=== PATIENT | female | born 1950 | race Caucasian/White ===

== ENCOUNTER → 2017-09-10 | Outpatient (CLI) | payer MEDICARE | LOC: M.RAD 09:50 | DX: J98.4 Other disorders of lung (principal); M19.012 Primary osteoarthritis, left shoulder; M19.011 Primary osteoarthritis, right shoulder; I10 Essential (primary) hypertension; E03.9 Hypothyroidism, unspecified; N95.1 Menopausal and female climacteric states ==

== ENCOUNTER → 2017-10-30 | Outpatient (CLI) | payer MEDICARE | LOC: M.RAD 10-22 09:00 | DX: E03.9 Hypothyroidism, unspecified (principal); I10 Essential (primary) hypertension; Z78.0 Asymptomatic menopausal state ==

== ENCOUNTER → 2017-12-31 | Outpatient (CLI) | payer MEDICARE | LOC: M.RAD 09:00 | DX: Z12.31 Encounter for screening mammogram for malignant neoplasm of breast (principal) ==

== ENCOUNTER → 2019-01-13 | Outpatient (CLI) | payer MEDICARE | LOC: M.ULTRA 10:00 | DX: Z12.31 Encounter for screening mammogram for malignant neoplasm of breast (principal); D21.5 Benign neoplasm of connective and other soft tissue of pelvis ==

== ENCOUNTER → 2020-12-12 | Outpatient (CLI) | payer MEDICARE | LOC: M.RAD 11-29 09:12 | PROVIDERS: ATTEND Nurse Practitioner Family | DX: Z12.31 Encounter for screening mammogram for malignant neoplasm of breast (principal); M81.0 Age-related osteoporosis without current pathological fracture; M85.80 Other specified disorders of bone density and structure, unspecified site; Z78.0 Asymptomatic menopausal state ==